=== PATIENT | male | born 1995 | race Caucasian/White ===

== ENCOUNTER 2017-07-08 14:07 | Emergency (ER) | payer SELFPAY ==
[2017-07-08 14:08] VITALS: BP 127/78; PULSE 81; RESP 16; TEMP 36.8; O2SAT 99; BMI 21.4
--- NOTE | 2017-07-08 14:30 | ED.VISSUMM ---
- ER Visit Summary Date of Service: 07/08/17 Chief Complaint: Abscesses History of Present Illness: The patient is a 21 M who noted abscesses to his thighs 2 days ago. His roommate is currently being treated for MRSA. He denies fever or other constitutional symptoms. Physical Examination: Vital signs are unremarkable. Patient is afebrile. Physical exam is significant for skin exam which reveals a single pustule to the right thigh. There are 2 small pustules to the left thigh. No surrounding cellulitis is noted. The larger pustule on the left thigh is firm and indurated, but is not fluctuant. Test Results: [] Emergency Department Course and Treatment: Patient be advised to use warm compresses. He will be treated with Bactrim and Keflex, first doses given here. Treatment Plan: [] Disposition: Discharge Impression: Cutaneous abscesses This note was generated with [employer] dictation software. It may contain incorrect words, spelling, and punctuation that were not noted in review of the chart prior to signing ED Disposition - Plan for ED Patient: Chief Complaint: Abscess Referrals: Stephen Turner MD [Primary Care Provider] -
--- NOTE | 2017-07-08 14:31 | ED.DEP ---
ED Disposition - Plan for ED Patient: Disposition: Home or Assisted Living Chief Complaint: Abscess Instructions: ED Staph Infec Abx Tx Only Prescriptions: Cephalexin [Keflex] 500 mg PO Q6 #40 capsule Smz/Tmp Ds [Bactrim Ds] 1 tablet PO BID #20 tablet Referrals: Stephen Turner MD [Primary Care Provider] - 1-2 Weeks
[2017-07-08 14:34] VITALS: BP 118/74; PULSE 75; RESP 14; O2SAT 100
[2017-07-08] MEDS: Smz/Tmp Ds Tablet 1 TABLET PO (14:39)
[2017-07-08] MEDS: Cephalexin 250 MG Capsule 500 MG PO (14:39)
== END 2017-07-08 15:01 | disposition home or self-care (01) ==
LOC: ED 14:44
PROVIDERS: Emergency Provider Emergency Medicine; Family Provider Family Medicine; PCP Family Medicine
DX: L02.416 Cutaneous abscess of left lower limb (principal); L02.415 Cutaneous abscess of right lower limb; F41.9 Anxiety disorder, unspecified; Z79.899 Other long term (current) drug therapy
CPT/HCPCS: 99283

== ENCOUNTER 2018-06-01 21:37 | Emergency (ER) | payer SELFPAY ==
[2018-06-01 21:38] VITALS: BP 112/78; PULSE 84; RESP 14; TEMP 36.9; O2SAT 99; BMI 22.8
[2018-06-01 21:44] VITALS: BP 112/78; PULSE 84; RESP 14; TEMP 36.9; O2SAT 99
--- NOTE | 2018-06-01 21:56 | ED.VISSUMM ---
- ER Visit Summary Date of Service: 06/01/18 Chief Complaint: Infection left little finger History of Present Illness: The patient is a 22 M who is left-hand dominant presents with redness swelling dorsal surface of the left little finger over the proximal phalanx. This started 2 days ago. He poked the area with a needle yesterday and had drainage. He poked it again and states he had clear drainage. He denies fever, chills or night sweats. Denies a traumatic fever, murmur, SBE or being immune suppressed. He has history of MRSA. Physical Examination: There is an area of erythema that is 1 x 2 cm over the dorsal surface left little finger proximal phalanx. There is fluctuance. There is no lymphangitis. There is slight induration. There is no epitrochlear excellent lymphadenopathy. Insert cardiopulmonary exam Test Results: None Emergency Department Course and Treatment: Patient was consented for I&D. Patient was prepped draped sterile manner. There was anesthetized. Incision was made with 15 blade. Purulent material was expressed. Blunt dissection was undertaken with more purulent material. The cavity was irrigated. Since this is over the extensor minimize tendon a wick was not placed. Treatment Plan: I&D subcutaneous abscess left little finger and p.o. antibiotics cephalexin 500 mg and Bactrim DS Disposition: Discharge with follow-up in [address] Turner Impression: 1. Abscess left little finger with cellulitis 2. I&D small subcutaneous abscess This note was generated with [employer] dictation software. It may contain incorrect words, spelling, and punctuation that were not noted in review of the chart prior to signing ED Disposition - Plan for ED Patient: Disposition: Home or Assisted Living Chief Complaint: Cellulitis Instructions: ED Abscess IandD, ED Skin Infec MRSA Suspect Conf Prescriptions: Smz/Tmp Ds [Bactrim Ds] 1 tab PO BID #14 tab Cephalexin [Keflex] 500 mg PO 4X/DAY #28 cap Referrals: Stephen Turner MD [Primary Care Provider] - 2 Days for wound check
[2018-06-01] MEDS: Cephalexin 250 MG Capsule 500 MG PO (22:33)
[2018-06-01] MEDS: Smz/Tmp Ds Tablet 1 TABLET PO (22:33)
[2018-06-01 22:40] VITALS: RESP 18
== END 2018-06-01 22:41 | disposition home or self-care (01) ==
LOC: ED 22:15
PROVIDERS: Emergency Provider Emergency Medicine; Family Provider Family Medicine; PCP Family Medicine
DX: L02.512 Cutaneous abscess of left hand (principal); L03.012 Cellulitis of left finger; Z86.14 Personal history of Methicillin resistant Staphylococcus aureus infection
CPT/HCPCS: 10060; 99285